=== PATIENT | female | born 1975 | race African-American/Black ===

== ENCOUNTER 2017-01-03 10:40 | Emergency (ER) | payer MEDICAID ==
[~2017-01-03] VITALS: Ht 154.9 cm; Wt 60.0 kg
[2017-01-03 10:43] VITALS: BP 120/86; PULSE 106; RESP 24; TEMP 97.8; O2SAT 97
--- NOTE | 2017-01-03 11:12 | PD ---
Physical Exam Date Seen by Provider: Jan 03, 2017 Time Seen by Provider: 11:07 Narrative Pt presents to the ED with c/o flu like symptoms. Pt states she night sweats, headache, vomiting, fevers, chills for the last 3 days. Pt has been taking Tylenol #3 with no relief. Pt is not tolerating food or fluids. She states she vomits every time she eats or drinks anything. LMP 12/30/16. Pt took tylenol cold and flu this morning. Pt is mildly tachycardic, VS otherwise stable. She appears acutely ill, in no acute distress. Pt is awaiting bed placement. Data Data Last Documented VS Vital Signs Date Time Temp Pulse Resp B/P Pulse Ox O2 Delivery O2 Flow Rate FiO2 01/03/17 10:43 97.8 106 24 120/86 97 Room Air MDM Supervised Visit with GLORY: No Scripts No Active Prescriptions or Reported Meds Katherine Lassiter Jan 03, 2017 11:12
--- NOTE | 2017-01-03 11:43 | PD ---
HPI Chief Complaint: Cold / Flu Symptoms Time Seen by Provider: 11:43 Travel History International Travel<30 days: No Contact w/Intl Traveler<30days: No Traveled to known affect area: No History of Present Illness HPI 41-year-old female presents to the emergency department for evaluation of flulike symptoms. The patient states that for the past 2 days she's had headache, fever, chills, sweats, nausea, vomiting and diarrhea. States that she has been trying [id number] Tylenol Cold and flu without improvement of symptoms. States that she's had about 1-2 episodes of vomiting daily, only one episode of vomiting today. She has been able to keep down some juice this morning. She states her fever has been 102F orally at the highest. Denies chest pain, shortness of breath, difficulty breathing, abdominal pain, dysuria. Denies although her last menstrual period was 12/02/16. Denies any medical conditions. Denies any recent travel or sick contacts. 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 No other complaints. PFSH Past Medical History Anemia: Yes Asthma: Yes Diminished Hearing: No Migraines: Yes ?: Not LMP: 12/30/16 : 4 Para: 2 Miscarriage: 2 Ovarian Cysts: Yes Social History Alcohol Use: No Tobacco Use: No Substance Use: No Allergies-Medications (Allergen,Severity, Reaction): Coded Allergies: Penicillin (Verified Allergy, Severe, RASH, 06/22/16) Reported Meds & Prescriptions Reported Meds & Active Scripts Active No Active Prescriptions or Reported Medications Review of Systems Except as stated in HPI: all other systems reviewed are Neg Physical Exam Narrative GENERAL: Well-nourished and well-developed pleasant male patient in no acute distress who is nontoxic appearing. SKIN: Warm and dry. HEAD: Normocephalic and atraumatic. EYES: No injection, drainage, or hyphema noted. PERRLA. EOMI. ENT: No nasal drainage noted. Oropharynx is clear and the TMs are normal with good landmarks. NECK: Supple and the trachea is midline. CARDIOVASCULAR: Regular rate and rhythm. RESPIRATORY: Breath sounds are equal bilaterally with no accessory muscle use, wheezing, rhonchi, or crackles. GASTROINTESTINAL: Abdomen is soft, non-tender, and nondistended. No rebound tenderness or guarding. Negative McBurney's point. Negative Mckeon sign. MUSCULOSKELETAL: No obvious deformities, swelling, cyanosis, or ecchymosis is present throughout the upper and lower extremities. Patient has full range of motion without any signs of neurovascular compromise. NEUROLOGICAL: Awake, alert, and oriented. Normal speech and gait. Cranial nerves are grossly intact. Data Data Last Documented VS Vital Signs Date Time Temp Pulse Resp B/P Pulse Ox O2 Delivery O2 Flow Rate FiO2 01/03/17 10:43 97.8 106 24 120/86 97 Room Air Orders Influenzae A/B Antigen (01/03/17 11:41) Ondansetron Odt (Zofran Odt) (01/03/17 11:45) Ed Urine Pregnancytest Poc (01/03/17 11:41) [facility] Medical Decision Making Medical Screen Exam Complete: Yes Emergency Medical Condition: Yes Differential Diagnosis Influenza versus gastroenteritis versus viral syndrome versus other Narrative Course 41-year-old female presents to the emergency department for evaluation of flulike symptoms for the past 2 days. Patient is afebrile. She is slightly tachycardic rate of 106 bpm. Otherwise vital signs are within normal limits. She appears well overall. Abdominal examination is benign. She is currently drinking orange juice without difficulty. We'll give her Zofran and some Gatorade and reassessed. Influenza swab is pending. ED urine test is negative. Influenza swab is negative. Patient reports some improvement with Zofran and has been drinking Gatorade while here in the ED without difficulty. No episodes of vomiting while here. This is viral gastroenteritis. Discussed supportive care with the patient. I will give her a few tablets of Zofran to take at home but stressed the importance of returning if her symptoms worsen. Patient verbalizes understanding and agreement with treatment plan. Diagnosis Primary Impression: Gastroenteritis Referrals: Primary Care Physician Patient Instructions: Gastroenteritis (ED), General Instructions Departure Forms: Tests/Procedures, Work Release Enter return to work date: Jan 06, 2017 Additional Instructions: Rest. Remain adequately hydrated with Gatorade or Pedialyte. Take Zofran as prescribed for nausea. If you or vomiting despite taking the Zofran please return immediately to the emergency department. Follow-up with your Primary Care Physician. Return to the ED for any acute worsening of symptoms. Med/Other Pt SpecificInfo: Prescription(s) given Scripts Ondansetron (Zofran)4 Mg Tab4 Mg PO Q6HR PRN (NAUSEA OR VOMITING) #10 TAB Ref 0 Prov:Sathya Salazar MD 01/03/17 Disposition: 01 DISCHARGE HOME Condition: Stable Deb Odonnell Jan 03, 2017 11:43
[2017-01-03] MEDS ORDERED: ONDANSETRON ODT 4 MG TAB PO ONE (11:45)
[2017-01-03] MEDS ORDERED: ZOFR4TAB PO (12:27)
== END 2017-01-03 13:04 | disposition home or self-care (01) ==
LOC: NETRI 10:40
DX: K52.9 Noninfective gastroenteritis and colitis, unspecified (principal); R50.9 Fever, unspecified; D64.9 Anemia, unspecified; J45.909 Unspecified asthma, uncomplicated
CPT/HCPCS: 84703; 87804; 99283